=== PATIENT | female | born 1960 | race Caucasian/White ===

== ENCOUNTER 2016-07-28 11:50 | Observation (INO) ==
[2016-07-28] MEDS ORDERED: 0.9 % Sodium Chloride 1,000 ML IVC ONE (12:14)
--- NOTE | 2016-07-28 12:22 | Emergency Department Note ---
START Narrative - START START: I examined this patient and my medical decision-making was reviewed with the MECHANICAL PRODUCT DESIGN ENGINEER/PA/Advanced Practice Nurse/Resident Physician. I agree with the documented findings, disposition and treatment plan as described except to the extent set forth below. ED attending note: Patient seen with emergency medicine resident Dr. Helton. We independently evaluated the patient. We independently had [id number] contact with the patient. Please see a copy of his note for details of the history and physical, evaluation, management and disposition of this emergency Department patient. Briefly: A 56-year-old female nonsmoker presents with about 1 month of cough and feeling poorly. Has been on 3 different antibiotics for pneumonia. Chest x -ray shows as recent as 3 days ago that she moaned just a little bit worse. No family history of cancer, no ill contacts and thought recent travel. 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 Although anthrax is low at differential but certainly within there. Patient will get a CT noncontrast of the thorax and some screening labs. Disposition pending. Patient stable.
--- NOTE | 2016-07-28 12:25 | Emergency Department Note ---
Disposition Clinical Impression: Community acquired pneumonia Sepsis Qualifiers: Sepsis type: sepsis due to unspecified organism Qualified Code(s): A41.9 - Sepsis, unspecified organism Disposition: Admitted As Inpatient Condition: Fair Referrals: Wanda Malik MD [Primary Care Provider] - Forms: ED Satisfaction Letter Time of Disposition: 14:25 General Adult HPI - General Chief complaint: ED Shortness of Breath/Dyspnea Stated complaint: SOB cough Time Seen by Provider: 07/28/16 11:59 Source: patient Limitations: no limitations Nursing Notes Reviewed: Yes Vital Signs Reviewed: Yes - History of Present Illness HPI Narrative: 56-year-old female with no past medical history presents to the emergency department for evaluation of pneumonia 3 weeks. Patient states that she was initially diagnosed with pneumonia by her PCP in mid June. Patient states since that time she has been on multiple antibiotics. Initially she was on Augmentin which was later changed to Levaquin which was then later changed to Levaquin 750 mg plus Augmentin plus Zithromax. Patient has had 2 chest x-rays during this period of time. The first showed a right lower lobe pneumonia the second showed a interval development of a left-sided retrocardiac pneumonia and a persistent right lower lobe pneumonia despite antibiotics. Patient states now she has developed diarrhea and she represented to her PCP who advised her to come to the emergency department to be evaluated. Patient states that her symptoms seem to have improved just slightly but she still coughing and short of breath. She does report chest pain with coughing. She denies any nausea or vomiting. She denies any abdominal pain. Patient did report a fever of 103F at home on Thursday. Pt Subjective Complaint: Pneumonia Onset (ago): week(s) (3) Location: chest Radiation: non-radiation Pain Scale: 0 Consistency: constant Improves with: nothing Worsens with: nothing Associated symptoms: Reports: chest pain, cough, fever/chills, shortness of breath Treatments Prior to Arrival: other (Multiple rounds of antibiotics and cough suppressants) - Related Data Allergies Allergy/AdvReac Type Severity Reaction Status Date / Time No Known Allergies Allergy Verified 11/21/15 00:36 Constitutional: Reports: fever, chills Cardiovascular: Reports: chest pain. Denies: palpitations, dyspnea on exertion Respiratory: Reports: cough, dyspnea, wheezes Gastrointestinal: Denies: abdominal pain, nausea, vomiting Musculoskeletal: Denies: back pain Neurological: Denies: headache, weakness Past Medical History - Past Medical History Medical history: Reports: no medical history Psychiatric history: Reports: anxiety, depression - Social History Smoking Status: Never smoker Smokeless Tobacco Status: No Alcohol use: Reports: occasionally Drug use: Reports: none Physical Exam - General Limitations: no limitations General appearance: alert, in no apparent distress - Head Head exam: atraumatic, normocephalic, normal inspection - Chest Chest inspection: Present: normal inspection, symmetric chest wall rise - Respiratory Respiratory exam: Present: other (Crackles noted in the left and right lung bases.) - Cardiovascular Cardiovascular exam: Present: regular rate, normal rhythm - Abdominal Exam Abdominal exam: Present: soft, Non-Tender. Absent: tenderness, distention, guarding, rebound, rigidity - Neurological Exam Neurological exam: Present: alert - Skin Skin exam: Present: warm, dry, intact, normal color Course - Reevaluation(s) Reevaluation #1: Discussed findings with patient and family. CT shows multifocal pneumonia despite outpatient antibiotics. Will admit to the hospitalist service were to be acquired pneumonia with outpatient failure to treat. Time: 14:24 Reevaluation #2: Discussed case with hospitalist service. Patient admitted for further evaluation and treatment. Time: 14:49 Vital Signs Temperature 98.2 F 07/28/16 11:52 Pulse Rate 94 07/28/16 11:52 Respiratory Rate 18 07/28/16 11:52 Blood Pressure 113/70 07/28/16 11:52 O2 Sat by Pulse Oximetry 96 07/28/16 11:52 Temperature 98.2 F 07/28/16 11:52 Pulse Rate 82 07/28/16 14:22 Respiratory Rate 15 07/28/16 14:22 Blood Pressure 125/75 07/28/16 14:22 O2 Sat by Pulse Oximetry 96 07/28/16 14:22 Oxygen Delivery Oxygen Delivery Room Air Medical Decision Making - Medical Records Medical records reviewed: Yes I reviewed the patient's medical records. - Lab Data Lab results reviewed: Yes I reviewed the patient's lab results. Result diagrams: 07/28/16 13:15 07/28/16 13:15 Lab Results 07/28/16 07/28/16 07/28/16 Range/Units 13:15 13:15 13:15 WBC 3.4 L (4.3-11.1) K/mcL RBC 4.67 (3.82-4.97) M/mcL Hgb 13.1 (11.5-15.4) g/dL Hct 38.5 (35.3-44.9) % MCV 82.4 L (83.0-100.0) fL MCH 28.1 (28.0-33.3) pg MCHC 34.0 (31.6-35.5) g/dL RDW 13.5 (11.5-14.5) % Plt Count 300 (140-400) K/mcL MPV 8.8 L (9.4-12.4) fL Seg Neutrophils % 48.0 % Lymphocytes % 52.0 % Neutrophils # 1.6 (1.6-8.9) K/mcL Lymphocytes # 1.8 (0.6-4.6) K/mcL Reactive Lymphocytes Present A (Not Present) Platelet Estimate Normal (Normal) Sodium 142 (136-145) mEq/L Potassium 3.9 (3.5-4.5) mEq/L Chloride 106 (98-109) mEq/L Carbon Dioxide 26 (19-29) mEq/L BUN 11 (7-20) mg/dL Creatinine 0.74 (0.57-1.11) mg/dL Est GFR ( Amer) > 60 (> 60) Est GFR (Non-Af Amer) > 60 (> 60) BUN/Creatinine Ratio 15 (6-26) Glucose 94 (70-99) mg/dL Calculated Osmolality 293 (280-300) Lactic Acid 1.5 (0.5-2.2) mmol/L Calcium 9.8 (8.6-10.8) mg/dL Troponin I (0-0.03) ng/mL 07/28/16 07/28/16 Range/Units 13:15 14:05 WBC (4.3-11.1) K/mcL RBC (3.82-4.97) M/mcL Hgb (11.5-15.4) g/dL Hct (35.3-44.9) % MCV (83.0-100.0) fL MCH (28.0-33.3) pg MCHC (31.6-35.5) g/dL RDW (11.5-14.5) % Plt Count (140-400) K/mcL MPV (9.4-12.4) fL Seg Neutrophils % % Lymphocytes % % Neutrophils # (1.6-8.9) K/mcL Lymphocytes # (0.6-4.6) K/mcL Reactive Lymphocytes (Not Present) Platelet Estimate (Normal) Sodium (136-145) mEq/L Potassium (3.5-4.5) mEq/L Chloride (98-109) mEq/L Carbon Dioxide (19-29) mEq/L BUN (7-20) mg/dL Creatinine (0.57-1.11) mg/dL Est GFR ( Amer) (> 60) Est GFR (Non-Af Amer) (> 60) BUN/Creatinine Ratio (6-26) Glucose (70-99) mg/dL Calculated Osmolality (280-300) Lactic Acid 0.5 (0.5-2.2) mmol/L Calcium (8.6-10.8) mg/dL Troponin I 0.00 (0-0.03) ng/mL - Radiology Data Radiology results reviewed: Yes I reviewed the patient's radiology results. - EKG Data EKG #1 EKG attestation: Yes I reviewed and interpreted this EKG. EKG shows normal: sinus rhythm Rate: normal Rhythm: NSR [place]/QRS: normal Interpretation: no acute changes
[2016-07-28 13:26] LABS: Hematocrit 38.5 % (35.3-44.9); Hemoglobin 13.1 g/dL (11.5-15.4); Mean Corpuscular Hemoglobin 28.1 pg (28.0-33.3); Mean Corpuscular Volume 82.4 fL (83.0-100.0); Mean Platelet Volume 8.8 fL (9.4-12.4); Platelet Count 300 K/mcL (140-400); Red Blood Count 4.67 M/mcL (3.82-4.97); Red Cell Distribution Width 13.5 % (11.5-14.5)
[2016-07-28 13:40] LABS: BUN/Creatinine Ratio 15 (6-26); Blood Urea Nitrogen 11 mg/dL (7-20); Calcium 9.8 mg/dL (8.6-10.8); Carbon Dioxide 26 mEq/L (19-29); Chloride 106 mEq/L (98-109); Glucose 94 mg/dL (70-99); Osmolality,Calculated 293 (280-300); Potassium 3.9 mEq/L (3.5-4.5); Sodium 142 mEq/L (136-145); eGFR For African Americans > 60 (> 60); eGFR For Non-African Americans > 60 (> 60)
[2016-07-28 13:57] LABS: Lymphocytes # 1.8 K/mcL (0.6-4.6); Neutrophils # 1.6 K/mcL (1.6-8.9); Platelet Estimate Normal (Normal)
[2016-07-28 14:00] LABS: Reactive Lymphocytes Present (Not Present)
[2016-07-28] MEDS ORDERED: Azithromycin 500 MG in D5% in Water 250 ML IVPB ONE (14:23)
[2016-07-28 16:03] LABS: Bilirubin,Urine Negative (Negative); Blood,Urine Negative (Negative); Clarity,Urine Clear (Clear); Color,Urine Yellow (Yellow); Glucose,Urine (UA) Normal (Normal); Ketones,Urine Negative (Negative); Leukocyte Esterase,Urine Negative (Negative); Nitrite,Urine Negative (Negative); PH,Urine 5.5 pH Units (5.0-8.0); Protein,Urine Negative (Neg-Trace); Specific Gravity,Urine 1.014 (1.010-1.025); Urobilinogen,Urine Normal (Normal)
[2016-07-28] MEDS ORDERED: Naloxone 0.4 MG/ML INJ IVP PRN (16:46)
[2016-07-28] MEDS ORDERED: Ondansetron 4 MG/2 ML VIAL IVP PRN (16:46)
[2016-07-28] MEDS ORDERED: Acetaminophen 325 MG TABLET PO PRN (16:46)
--- NOTE | 2016-07-28 16:55 | Internal Med History&Physical ---
Date of Encounter: 07/28/16 Time of Encounter: 14:00 Assessment and Plan (1) Community acquired pneumonia Current visit: Yes Status: Acute CT chest showed ground-glass and airspace opacities in both lobes, predominantly in the posterior right upper lobe, posterior right middle lobe and posterior right and left lower lobes. right thyroid nodule. IV ceftriaxone and azithromycin. mucinex. f/u blood cultures. if no improvement of symptoms, patient may benefit from bronchoscopy. (2) Loose stools Current visit: Yes Status: Acute given history of antibiotic use for 2 weeks, check c diff. Internal Medicine - H&P: HPI Chief complaint: Shortness of breath and cough for the past 3 weeks. Admitted From: Home Plans for Post Hospital Care: Home History of present illness: Ms. Reid is a 56 year old female with no significant medical history who present with a chief complaint of shortness of breath and cough. 3 weeks ago, patient was diagnosed with acute bronchitis and was prescribed inhalers and augmentin. Her symptoms continued to progress and a week later her primary care physician ordered a chest x-ray showing RLL pneumonia. She completed a seven-day course of levofloxacin without much clinical improvement. She continued to have sob and cough, and she was switched to azithromycin. She had a fever of 103 F at home on Thursday. She had a repeat CXR and it showed bilateral PNA. Her PCP called the patient to come to our ED. She denies any hemoptysis, chest pain, headache, LE edema, dizziness, abdominal pain, bleeding , nausea, vomiting. Positive loose stools in the past few days. In ED, CT chest showed multifocal parenchymal lung disease compatible with pna. right thyroid nodule. Last summer, she went to [facility] in December. has pna now. Her 36 yo daughter has a sinus infection. His dad had COPD and he was a smoker. Past Med Surg Social Fam HX - Past Medical History Medical history: no medical history Psychiatric history: anxiety, depression - Social History Smoking Status: Never smoker Smokeless Tobacco Status: No Alcohol use: occasionally Drug use: none Internal Medicine - H&P: Meds Albuterol Sulfate [Proair Hfa] 2 puff IH Q4H PRN 07/28/16 [History] Alprazolam [Xanax 0.25 MG Tablet] 0.25 mg PO TID PRN 07/28/16 [History] Amoxicillin/Potassium Clav [Augmentin Xr 1,000-62.5 Tab] 1 each PO BID 07/28/16 [History] Azithromycin [Azithromycin 6-Tab Pack] 250 mg PO PER PKG DI 07/28/16 [History] Benzonatate [Tessalon] 100 - 200 mg PO TID PRN 07/28/16 [History] EPINEPHrine [Epipen] 0.3 mg IM ONCE PRN 07/28/16 [History] Hydrocodone Bit/Homatrop Me-Br [Hydrocodone-Homatropine Syrup] 5 ml PO Q6H PRN 07/28/16 [History] L. Acidophilus/Pectin, [place] [Acidophilus Probiotic Capsule] 1 each PO DAILY [History] Levofloxacin [Levaquin] 750 mg PO DAILY 07/28/16 [History] Sertraline [Zoloft] 50 mg PO DAILY 07/28/16 [History] TraZODone 25 - 50 mg PO HS PRN 07/28/16 [History] Allergies typhoid vaccine Adverse Reaction (Verified 07/28/16 14:52) Unknown Childhood reaction. All Systems PM: A 10-system review of systems was performed and is negative for pertinent findings except as documented above in the HPI. - Constitutional Vitals: Temp Pulse Resp BP Pulse Ox 98.2 F 76 16 117/66 97 07/28/16 11:52 07/28/16 15:51 07/28/16 15:57 07/28/16 15:57 07/28/16 15:51 General appearance: Present: cooperative, A&O X 3, no acute distress, answers questions appropriately - Eye Eye exam: Present: PERRL, sclera anicteric - Neck Neck exam general surgery: Present: supple, trachea midline. Absent: lymphadenopathy - Respiratory Respiratory exam: Present: rales (bilateral. breath sounds are diminished at right base) - GI/Abdominal GI/Abdominal exam: Present: normal bowel sounds, soft. Absent: distended, tenderness - Extremities Exam Extremities exam: Absent: pedal edema - Back Exam Back exam: Absent: CVA tenderness (L), CVA tenderness (R) - Neurological Exam Neurological exam: Present: alert, oriented X3. Absent: facial droop, speech deficit - Skin Skin exam: Present: intact. Absent: rash Internal Med - H&P Results - Labs CBC & Chem 7: 07/28/16 13:15 07/28/16 13:15 Labs: Urine 07/28/16 Range/Units 15:50 Urine Color Yellow (Yellow) Urine Clarity Clear (Clear) Urine pH 5.5 (5.0-8.0) pH Units Ur Specific [place] 1.014 (1.010-1.025) Urine Protein Negative (Neg-Trace) mg/dL Urine Glucose (UA) Normal (Normal) mg/dL
[2016-07-28] MEDS: GuaiFENesin/Dextromethorphan TABLET PO SCH (21:33)
[2016-07-29 04:29] LABS: Basophils % 0.5 %; Eosinophils # 0.1 K/mcL (0.0-0.6); Eosinophils % 2.7 %; Hematocrit 34.1 % (35.3-44.9); Immature Granulocytes % 0.5 % (0-4); Lymphocytes # 2.1 K/mcL (0.6-4.6); Lymphocytes % 52.1 %; Mean Corpuscular HGB Conc 33.4 g/dL (31.6-35.5); Mean Corpuscular Hemoglobin 27.9 pg (28.0-33.3); Mean Corpuscular Volume 83.4 fL (83.0-100.0); Mean Platelet Volume 8.8 fL (9.4-12.4); Monocytes # 0.4 K/mcL (0.0-1.3); Monocytes % 10.4 %; Neutrophils # 1.4 K/mcL (1.6-8.9); Platelet Count 268 K/mcL (140-400); Red Blood Count 4.09 M/mcL (3.82-4.97); Red Cell Distribution Width 13.2 % (11.5-14.5); Segmented Neutrophils % 33.8 %
[2016-07-29 04:51] LABS: Hemoglobin 11.4 g/dL (11.5-15.4)
[2016-07-29 04:57] LABS: BUN/Creatinine Ratio 12 (6-26); Blood Urea Nitrogen 9 mg/dL (7-20); Calcium 9.3 mg/dL (8.6-10.8); Carbon Dioxide 25 mEq/L (19-29); Chloride 108 mEq/L (98-109); Glucose 100 mg/dL (70-99); Magnesium 1.7 mg/dL (1.6-2.6); Osmolality,Calculated 291 (280-300); Phosphorous 4.3 mg/dL (2.3-4.7); Potassium 4.5 mEq/L (3.5-4.5); Sodium 141 mEq/L (136-145); eGFR For African Americans > 60 (> 60); eGFR For Non-African Americans > 60 (> 60)
[2016-07-29 05:02] LABS: Platelet Estimate Normal (Normal); Reactive Lymphocytes Present (Not Present)
[2016-07-29] MEDS: GuaiFENesin/Dextromethorphan TABLET PO SCH ×2 (07:54→21:36)
[2016-07-29] MEDS ORDERED: *HR* Enoxaparin 40 MG/0.4 ML SYRINGE SQ SCH (08:50)
[2016-07-29] MEDS: *HR* Enoxaparin 40 MG/0.4 ML SYRINGE SQ SCH (11:56)
[2016-07-29] MEDS: Lactobacillus 1 EACH CAP.SPRINK PO SCH ×2 (11:56→21:36)
--- NOTE | 2016-07-29 13:38 | Internal Med Progress Note ---
Date of Encounter: 07/29/16 Time of Encounter: 13:36 - Assessment and plan (1) Community acquired pneumonia Current Visit: Yes Status: Acute Assessment and plan: We will continue the ceftriaxone for today. Has had no fever, relatively clinically better. We will send sputum for cultures and Gram stain. Awaiting blood culture results. If stable by tomorrow, can discharge on oral medication. (2) Loose stools Current Visit: Yes Status: Acute Assessment and plan: Has improved today. We will add probiotics. C. difficile was negative. Suspect secondary to multiple antibiotics that she received as outpatient. - Time Spent With Patient 25 - 35 minutes - Subjective Interval history: Patient seen at the bedside today, first encounter. Admitted for community-acquired pneumonia, has failed outpatient therapy. Reports that she is feeling better today, denies much cough or shortness of breath. - Constitutional Vitals: Temp Pulse Resp BP Pulse Ox 98.3 F 72 16 112/61 96 07/29/16 11:20 07/29/16 11:20 07/29/16 11:20 07/29/16 11:20 07/29/16 11:20 General appearance: Present: cooperative, A&O X 3, no acute distress, answers questions appropriately Exam: General appearance: Present: cooperative, A&O X 3, no acute distress, answers questions appropriately - Eye Eye exam: Present: PERRL, sclera anicteric - Neck Neck exam general surgery: Present: supple, trachea midline. Absent: lymphadenopathy - Respiratory Respiratory exam: Present: Bilaterally clear, no added sounds. - GI/Abdominal GI/Abdominal exam: Present: normal bowel sounds, soft. Absent: distended, tenderness - Extremities Exam Extremities exam: Absent: pedal edema - Back Exam Back exam: Absent: CVA tenderness (L), CVA tenderness (R) - Neurological Exam Neurological exam: Present: alert, oriented X3. Absent: facial droop, speech deficit - Skin Skin exam: Present: intact. Absent: rash Internal Medicine: Result - Labs CBC & Chem 7: 07/29/16 04:00 07/29/16 04:00 Labs: Short CBC 07/29/16 Range/Units 04:00 WBC 4.0 L (4.3-11.1) K/mcL Hgb 11.4 L D (11.5-15.4) g/dL Hct 34.1 L (35.3-44.9) % Plt Count 268 (140-400) K/mcL Neutrophils # 1.4 L (1.6-8.9) K/mcL BMP 07/29/16 04:00 Sodium 141 Potassium 4.5 Chloride 108 Carbon Dioxide 25 BUN 9 Creatinine 0.73 Glucose 100 H Calcium 9.3 Urine 07/28/16 Range/Units 15:50 Urine Color Yellow (Yellow) Urine Clarity Clear (Clear) Urine pH 5.5 (5.0-8.0) pH Units Ur Specific [place] 1.014 (1.010-1.025) Urine Protein Negative (Neg-Trace) mg/dL Urine Glucose (UA) Normal (Normal) mg/dL Consult Discharge Plan - Plan Referrals: Wanda Malik MD [Primary Care Provider] - (web request sent on 07/29/16 )
--- NOTE | 2016-07-29 15:27 | Electrocardiograph Report ---
[place] [id number] Test Date: 2016-07-28 Pat Name: Rajwinder Reid Department: 105 Room: 2A22 Gender: F Bottom Finisher: : 1960 Requested By: Saul Helton Order Number: [id number] Reading MD: Erica Thorne Measurements Intervals [place] Rate: 77 P: 54 CO: 144 QRS: 36 QRSD: 81 T: 34 QT: 361 QTc: 393 Interpretive Statements SINUS RHYTHM Electronically Signed On 07-29-2016 15:25:49 EST by Erica Thorne
[2016-07-29] MEDS ORDERED: Azithromycin 500 MG in D5% in Water 250 ML IVPB SCH (16:00)
[2016-07-29 22:44] VITALS: BP 116/72
[2016-07-30] MEDS ORDERED: traMADol 50 MG TABLET PO ONE (00:22)
[2016-07-30] MEDS: *HR* Enoxaparin 40 MG/0.4 ML SYRINGE SQ SCH (06:49)
[2016-07-30] MEDS: GuaiFENesin/Dextromethorphan TABLET PO SCH (07:54)
[2016-07-30] MEDS: Lactobacillus 1 EACH CAP.SPRINK PO SCH (07:54)
[2016-07-30] MEDS ORDERED: Fluconazole 100 MG TABLET PO ONE (08:00)
--- NOTE | 2016-07-30 09:01 | Discharge Summary ---
Date of Encounter: 07/30/16 Time of Encounter: 08:56 - Discharge Diagnosis (1) Community acquired pneumonia Priority: Primary Status: Acute (2) Loose stools Priority: Primary Status: Acute - Discharge Medications Prescriptions: Cefdinir [Omnicef] 300 mg PO DAILY #5 capsule GuaiFENesin/Dextromethorphan [Mucinex Dm] 1 each PO BID 10 Days Home Medications: Albuterol Sulfate [Proair Hfa] 2 puff IH Q4H PRN 07/28/16 [History] Alprazolam [Xanax 0.25 MG Tablet] 0.25 mg PO TID PRN 07/28/16 [History] Benzonatate [Tessalon] 100 - 200 mg PO TID PRN 07/28/16 [History] EPINEPHrine [Epipen] 0.3 mg IM ONCE PRN 07/28/16 [History] Hydrocodone Bit/Homatrop Me-Br [Hydrocodone-Homatropine Syrup] 5 ml PO Q6H PRN 07/28/16 [History] L. Acidophilus/Pectin, [place] [Acidophilus Probiotic Capsule] 1 each PO DAILY [History] Sertraline [Zoloft] 50 mg PO DAILY 07/28/16 [History] TraZODone 25 - 50 mg PO HS PRN 07/28/16 [History] Cefdinir [Omnicef] 300 mg PO DAILY #5 capsule 07/30/16 [Rx] GuaiFENesin/Dextromethorphan [Mucinex Dm] 1 each PO BID 10 Days 07/30/16 [Rx] Allergies/Adverse Reactions: Allergies typhoid vaccine Adverse Reaction (Verified 07/28/16 14:52) Unknown Childhood reaction. Date of admission: 07/28/16 15:06 Primary care physician: Wanda Malik, Discharging clinician: Katya Alba Anticipated date of discharge: 07/30/16 - Patient Status Disposition: Home, Self-Care Condition: Fair Functional capacity at discharge: independent ambulation Overall status at discharge: patient is back to baseline - Discharge Instructions Instructions: Sepsis (DC), Pneumonia (DC) Follow Up With: Wanda Malik MD [Primary Care Provider] - 08/05/16 3:45 pm () - Diet and Activity Activity: resume usual activities as tolerated Diet: advance to your usual diet Interval History: Ms. Reid is a 56 year old female with no significant medical history who present with a chief complaint of shortness of breath and cough. 3 weeks ago, patient was diagnosed with acute bronchitis and was prescribed inhalers and augmentin. Her symptoms continued to progress and a week later her primary care physician ordered a chest x-ray showing RLL pneumonia. She completed a seven-day course of levofloxacin without much clinical improvement. She continued to have sob and cough, and she was switched to azithromycin. She had a fever of 103 F at home on Thursday. She had a repeat CXR and it showed bilateral PNA. Her PCP called the patient to come to our ED. She denies any hemoptysis, chest pain, headache, LE edema, dizziness, abdominal pain, bleeding , nausea, vomiting. Positive loose stools in the past few days. In ED, CT chest showed multifocal parenchymal lung disease compatible with pna. right thyroid nodule. Last summer, she went to [facility] in December. has pna now. Her 36 yo daughter has a sinus infection. His dad had COPD and he was a smoker. Hospital course: She was admitted for And was treated empirically with IV ceftriaxone and azithromycin. She improved clinically with IV antibiotics. Blood culture and sputum culture was negative. Her symptoms improved with resolution of cough and chest pain. She remained hemodynamically stable with no fever or leukocytosis. Given that she was on multiple different antibiotics as outpatient, she is being discharged today on oral Omnicef to complete treatment of 7 days. She was advised to follow-up with her PCP and for repeat scan in 4-6 weeks to confirm resolution of pneumonia. Time spent discussing smoking cessation with patient: more than 10 minutes - Time Spent with Patient Total time spent providing and/or coordinating discharge services: Greater than 30 minutes - Constitutional Vitals: Temp Pulse Resp BP Pulse Ox 98.1 F 81 18 116/72 96 07/29/16 22:42 07/29/16 22:42 07/29/16 22:42 07/29/16 22:42 07/30/16 08:02 General appearance: Present: cooperative, A&O X 3, no acute distress, answers questions appropriately Exam: General appearance: Present: cooperative, A&O X 3, no acute distress, answers questions appropriately - Eye Eye exam: Present: PERRL, sclera anicteric - Neck Neck exam general surgery: Present: supple, trachea midline. Absent: lymphadenopathy - Respiratory Respiratory exam: Present: rales (bilateral. breath sounds are diminished at right base) - GI/Abdominal GI/Abdominal exam: Present: normal bowel sounds, soft. Absent: distended, tenderness - Extremities Exam Extremities exam: Absent: pedal edema - Back Exam Back exam: Absent: CVA tenderness (L), CVA tenderness (R) - Neurological Exam Neurological exam: Present: alert, oriented X3. Absent: facial droop, speech deficit - Skin Skin exam: Present: intact. Absent: rash
== END 2016-07-30 09:50 | disposition home or self-care (01) ==
LOC: EMEROO 11:50 → 2ANU 11:50 → SUATTDRO 15:06 → 2ANU 15:57
PROVIDERS: ADMIT Internal Medicine; ATTEND Internal Medicine Endocrinology, Diabetes & Metabolism